=== PATIENT | male | born 1935 | race Caucasian/White ===

== ENCOUNTER → 2023-08-06 14:14 | Outpatient (REF) | payer MEDICARE, BC, SELFPAY | LOC: RAD 14:14 | PROVIDERS: ATTENDING PHYSICIAN Family Medicine | DX: J18.9 Pneumonia, unspecified organism (principal) | CPT/HCPCS: 71046 ==

== ENCOUNTER → 2023-09-13 09:37 | Day surgery (SDC) | payer MEDICARE, BC, SELFPAY ==
--- NOTE | 2023-09-13 10:44 | ITS.CL.CARDI ---
[facility] - Cardioversion
Cardioversion
Procedure Report:
Date of Procedure: September 13 2023
Procedure: Cardioversion
Indication: Symptomatic atrial flutter
Performing Physician: Darnell Villalobos DO, FACC
Technique: The patient was brought to the holding area. Signed informed consent was obtained. A time out was called and performed. The patient was anesthetized by the anesthesia service. Anticoagulation status was reviewed and appropriate. R2 pads
were placed anteriorly and posteriorly. A 200 J synchronized biphasic shock restored normal sinus rhythm without significant bradycardia. There were no complications.
Conclusion: Uncomplicated cardioversion from atrial flutter to sinus rhythm.
Recommendation: Routine post cardioversion care. 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
== END ==
LOC: CATH 09:37
PROVIDERS: ATTENDING PHYSICIAN Nuclear Medicine Nuclear Cardiology; FAMILY PHYSICIAN Family Medicine; OTHER PHYSICIAN Internal Medicine Cardiovascular Disease
DX: I48.92 Unspecified atrial flutter (principal); I10 Essential (primary) hypertension; J44.9 Chronic obstructive pulmonary disease, unspecified; F17.210 Nicotine dependence, cigarettes, uncomplicated; K21.9 Gastro-esophageal reflux disease without esophagitis; Z79.01 Long term (current) use of anticoagulants
CPT/HCPCS: 92960; 93005

== ENCOUNTER → 2023-10-02 15:55 | Outpatient (REF) | payer MEDICARE, BC, SELFPAY | LOC: RCS 15:55 | PROVIDERS: ATTENDING PHYSICIAN Internal Medicine Cardiovascular Disease; FAMILY PHYSICIAN Family Medicine | DX: I48.92 Unspecified atrial flutter (principal) | CPT/HCPCS: 93306 ==

== ENCOUNTER 2023-12-14 01:58 | Inpatient (IN) | payer MEDICARE, BC, SELFPAY ==
[2023-12-13 21:40] VITALS: BP 148/64
[2023-12-13 21:57] LABS: % Basophils 0.3 % (0-2); % Immature Granulocytes 0.3 % (0-0.5); % Lymphocytes 5.6 % (20.5-51.1); % Monocytes 6.2 % (1.7-9.3); % Neutrophils 87.6 % (42.2-75.2); Absolute Lymphocytes 0.7 10^3/uL (1.2-3.4); Absolute Monocytes 0.8 10^3/uL (0.1-0.6); Absolute Neutrophils 11.3 10^3/uL (1.4-6.5); Hematocrit 42.4 % (39.0-52.0); Hemoglobin 15.7 g/dL (13.0-18.0); Mean Corpuscular Hgb 33.3 pg (27.0-31.0); Mean Corpuscular Volume 89.8 fL (80.0-94.0); Mean Platelet Volume 8.9 fL (7.4-10.4); Nucleated Red Blood Cells % 0 % (-); Platelet Count 189 10^3/uL (130-400); Red Blood Cell Count 4.72 10^6/uL (4.70-6.10); Red Cell Dist. Width 12.8 % (11.5-14.5); White Blood Cell Count 12.9 10^3/uL (4.8-10.8)
[2023-12-13 22:20] LABS: ALT (SGPT) 19 U/L (0-50); AST (SGOT) 29 U/L (17-59); Albumin 4.2 g/dl (3.5-5.0); Alkaline Phosphatase 67 U/L (38-126); Blood Urea Nitrogen 10 mg/dl (9-20); Carbon Dioxide 26 mmol/L (22-30); Chloride 98 mmol/L (98-107); Glucose 175 mg/dl (70-99); Potassium 4.1 mmol/L (3.5-5.1); Sodium 132 mmol/L (135-145); Total Bilirubin 0.9 mg/dl (0.2-1.3); Total Protein 6.9 g/dl (6.3-8.2); eGFR > 60.00
[2023-12-13 22:22] LABS: Troponin I < 0.012 ng/ml
[2023-12-13 22:35] VITALS: BP 151/65
[2023-12-13 23:00] VITALS: BP 139/58
--- NOTE | 2023-12-13 23:33 | ED.GENMED ---
History of Present Illness
General
Chief Complaint: Breathing Problem
Source: patient
Exam Limitations: none
Time Seen by Provider: 12/13/23 22:32
Nursing documentation reviewed up to this point in time: agreed with
History of Present Illness
History of Present Illness:
88-year-old male with a past medical history of A-fib, GERD, former smoker who presents to the emergency room for evaluation of shortness of breath, cough, chest pain. Patient reports onset of symptoms Sunday�he reports he started with cough and
some soreness in his chest particularly with coughing. He says that Sunday he tested himself for COVID and was positive�of note his is admitted to the hospital with COVID. He says that cough and minor chest discomfort continued over the next
few days today started with some shortness of breath and came to the emergency room for assessment. He denies any fevers or chills. He denies any URI symptoms such as rhinorrhea, sore throat, congestion. He denies any GI issues. Denies any other
complaints. He reports he did have COVID previously roughly 6 to 8 months ago.
Past History
Past History
ED Past Medical History: GERD and Other (Patient has history of diverticulosis, but has not had any history of diverticulitis, and benign prostatic hypertrophy )
ED Past Surgical History: Appendectomy, Orthopedic (Daniel hip replacements) and Other (cataracts)
Social History
Tobacco: Smoker
Alcohol: Daily (Scotch 2)
Personal:
Living: with family
Employment: Retired
Review of Systems
Review of Systems
All Other Systems: ROS reviewed and negative except as documented in HPI and ROS
Constitutional: Reports fatigue; Denies fever or chills
EENT: Denies sore throat or runny nose
Respiratory: Reports cough and trouble breathing
Cardiac: Reports chest pain; Denies palpitations
ABD/GI: Denies abdominal pain, nausea, vomiting or diarrhea
: Denies flank pain
Musculoskeletal: Denies edema, neck pain or back pain
Neurological: Denies dizzy or headache
Phy Exam
Physical Exam
Physical Exam:
General: Awake, alert, oriented x3; no acute distress
Head: Normocephalic, atraumatic
Eyes: Conjunctiva normal
Throat: Airway intact, handling secretions
Neck: Trachea midline, supple without meningismus
Lungs: Mild tachypnea, borderline pulse ox 91% on room air, occasional coughing but lungs clear to auscultation bilaterally, no wheezing, rales, rhonchi
Heart: Regular rate and rhythm, no murmurs, gallops, or rubs
Abd: Soft, non distended, nontender
Neuro: No gross deficits
Extremities: No edema in extremities, warm and well-perfused
Scores
Heart Failure Risk
Heart Failure Risk Score: Not Applicable
Heart Score for Chest Pain Patients
STEMI patient?: Not applicable
Withdrawal Assessment of Alcohol
Withdrawal Assessment Completed?: Not applicable
Course
Orders/Labs/Results
Orders:
Orders
12/13/23 21:36
Electrocardiogram (*1) Urgent
Reason for Study: Shortness of Breath
EKG- Treatment ONCE
12/13/23 21:46
Chest [CR Chest - 2 Views ] Urgent
Comment:
Reason For Exam: shortness of breath, COVID +
12/13/23 21:51
CBC/With Diff [Complete Blood Count/With Diff] Urgent
CMP [Comprehensive Metabolic Panel] Urgent
Troponin I Urgent
12/13/23 22:[address] Non Medication Order As Directed
Physician Order: ambulatory pulse ox
Above order entered?: Yes
Abnormal Lab Results
12/13/23
21:51
WBC 12.9 H 10^3/uL
(4.8-10.8)
MCH 33.3 H pg
(27.0-31.0)
Absolute Neuts (auto) 11.3 H 10^3/uL
(1.4-6.5)
Absolute Lymphs (auto) 0.7 L 10^3/uL
(1.2-3.4)
Absolute Monos (auto) 0.8 H 10^3/uL
(0.1-0.6)
Neutrophils % 87.6 H %
(42.2-75.2)
Lymphocytes % 5.6 L %
(20.5-51.1)
Sodium 132 L mmol/L
(135-145)
Glucose 175 H mg/dl
(70-99)
12/13/23 21:51
12/13/23 21:51
Vital Signs
Initial and Last Documented VS:
Initial Vital Signs
Temp Pulse Resp BP Pulse Ox
36.7 C 80 20 148/64 92
12/13/23 21:40 12/13/23 21:40 12/13/23 21:40 12/13/23 21:40 12/13/23 21:40
Last Documented Vital Signs
Temp Pulse Resp BP Pulse Ox
36.7 C 80 20 151/65 92
12/13/23 21:40 12/13/23 21:40 12/13/23 21:40 12/13/23 22:35 12/13/23 22:41
MDM/Problems Addressed
Differential Diagnosis Includes:
Pneumonia, pneumothorax, bronchitis, myocarditis; PE, ACS considered less likely clinically
MDM/Problems Addressed:
88-year-old male presents for evaluation of cough, chest discomfort, shortness of breath in the setting of positive COVID test. Vital signs significant for mild tachypnea and borderline pulse ox on room air. Physical exam as above. Will check
labs including CBC and CMP. Will check troponin. Will check chest x-ray. Check an EKG. Monitor closely reassess after the above.
Labs reviewed: CBC shows slight leukocytosis to 12.9. CMP no clinically significant abnormalities. Troponin undetectable. Chest x-ray shows likely viral pneumonia right lung base likely COVID-related. Patient has mild tachypnea with respiratory
rate of 20-22 at rest. He has pulse ox of 91% on room air and with ambulation dropped to 88%. Will plan to treat with steroid and admit for observation of respiratory status given advanced age, progression of symptoms, and pneumonia on chest x-ray
with abnormal vital signs. Case discussed with hospitalist.
*Radiology
Radiology exam reviewed: preliminary read by ED provider and radiology read reviewed
*Pulse Oximetry
Patient hypoxic: no
*EKG
Interpreted by ED Provider?: Yes
Heart Rate: 76
Rate: normal
Rhythm: sinus
Cranston: left axis deviation
Interval: normal interval
QRS Pattern: normal QRS
Ischemia: no ischemia
*Critical Care Note
Total Time (30-74mins, 75-104mins- exclusive of procedures): Not Applicable
Data Reviewed
Source: patient and records
Patient Management
Discussion with other providers: Hospitalist (Discussed with hospitalist)
Escalation/DeEscalation of care consider admission/obs:
Admission indicated
ED Attending Note
-
Portions of this chart may have been created with voice recognition software.� Occasional wrong word or��sound alike� substitutions may have occurred due to the inherent limitations of voice recognition software.
Discharge Plan
Departure
Patient Disposition: Admit
Date of Disposition: 12/13/23
Time of Disposition: 23:42
Admit to doctor: Dandy
Presentation/result/management discussed w/ accepting MD/DO: Hospitalist
Discharge Problem:
Pneumonia due to COVID-19 virus
Prescriptions:
No Action
rabeprazole [AcipHex] 20 MG tablet,delayed release (DR/EC)
40 mg PO DAILY
cyanocobalamin (vitamin B-12) 1,000 MCG tablet
1,000 mcg PO DAILY
Florastor 50 mg Capsule
50 mg PO DAILY
varenicline [Chantix] 1 mg Tablet
1 mg PO BID
cholecalciferol (vitamin D3) [Vitamin D3] 50 mcg (2,000 unit) Capsule
50 mcg PO DAILY
Eliquis 5 mg Tablet
5 mg PO BID
Referrals:
Ron Chairez MD [Family Provider] -
Interventions
Interventions:
*Risk Screen - Suicide Last Done: 12/13/23 21:40
*General Assessment Last Done: 12/13/23 21:40
*Neglect/Abuse Screening Last Done: 12/13/23 22:41
*ED COVID-19 Vaccine History Last Done: 12/13/23 22:41
ED- Cardiac Assessment Last Done: 12/13/23 22:41
ED- Pulmonary Assessment Last Done: 12/13/23 22:41
Discharge Date and Time
Print Language: MOSOTHO
[2023-12-14] VITALS (8 sets, daily range): BP systolic 105–144; BP diastolic 48–70; PULSE 65–70; O2SAT 93; BMI 27.9
[2023-12-14] MEDS: DECADRON 10 MG IV (00:39)
--- NOTE | 2023-12-14 01:02 | HPS.HSE ---
Family Physician
-
Family Physician: Ron Chairez
Chief Complaint
-
Cough, Dizziness
History of Present Illness
Patient is an 88y M with PMH significant for A-Fib / Flutter and GERD who presents to ED complaining of cough, weakness and lightheadedness x several days. Patient states that his symptoms first appeared on Sunday evening. Cough has been
productive of yellow mucus. He has had mild shortness of breath and general fatigue. He tested for COVID at home on Sunday and was positive. His was also ill with similar symptoms, tested positive for COVID and has since been hospitalized
for her symptoms.
Patient states that he was feeling 'OK' until today when he noted that he was lightheaded / unsteady on his feet at home. He did not fall or suffer any injury. He had no syncope.
Patient presented to the ED for further evaluation and treatment.
Medical History
Past Medical History
Past Medical History: Reports Other
Additional Past Medical History:
GERD / Hurtado's Esophagus
Atrial Fibrillation / Flutter (s/p DCCV August 2023)
COPD
BPH
Past Surgical History: Reports Other
Additional Past Surgical History:
Bilateral HILTON
Left HILTON Revision
Cataracts
Skin Cancer Excisions
TURP
Hemorrhoid Surgery
Social History
Tobacco: Smoker (Current every day smoker. 'Quit' on Sunday of this week.)
Alcohol: Daily (2 drinks daily.)
Drug: None
Personal:
Family History
Family History: Not pertinent
Allergies / Home Medications
Allergies reflects when Allergies were last updated in [facility].
Home Medications with original date entered in [facility]
Allergy/Medication List:
Allergies
Allergy/AdvReac Type Severity Reaction Status Date / Time
No Known Allergies Allergy Verified 12/13/23 21:44
Home Medications
rabeprazole 20 mg tablet,delayed release (AcipHex) 40 mg PO DAILY 11/13/09
apixaban 5 mg tablet (Eliquis) 5 mg PO BID 09/13/23
Review of Systems
-
History Source: Patient
A 12 point ROS was completed and negative except as noted: Yes
Constitutional: Reports Fever, Fatigue and Chills
EENT: Denies Sore Throat
Respiratory: Reports Cough and Trouble Breathing; Denies Hemoptysis
Cardiac: Denies Chest Pain, Diaphoresis or Palpitations
Abdomen/GI: Denies Abdominal Pain, Nausea, Vomiting or Diarrhea
: Denies Dysuria, Frequency or Flank Pain
Musculoskeletal: Reports Muscle Pain; Denies Joint Pain or Edema
Neurological: Reports Dizzy and Headache
Psych: Denies Depression or Anxiety
Physical Exam
Vital Signs
Vital Signs
Temp Pulse Resp BP Pulse Ox
98.0 F 80 20 151/65 92
12/13/23 21:40 12/13/23 21:40 12/13/23 21:40 12/13/23 22:35 12/13/23 22:41
Physical Exam
General: Other (88y M resting comfortably at present.)
HEENT: Moist mucous membranes and PERRLA
Respiratory: Other (Few scattered squeaks / wheezes - clears with cough. Faint rales at R base.)
Cardiac: S1/S2 and Regular Rhythm; No Murmur
GI: Soft, Non Tender, Non Distended and Normal Bowel Sounds
Musculoskeletal: No Clubbing, No Cyanosis and No Edema
Neuro: AO x 3
Laboratory Results
-
12/13/23 21:51
12/13/23 21:51
Laboratory Results
Total Bilirubin 0.9 mg/dl (0.2-1.3) 12/13/23 21:51
AST 29 U/L (17-59) 12/13/23 21:51
ALT 19 U/L (0-50) 12/13/23 21:51
Alkaline Phosphatase 67 U/L (38-126) 12/13/23 21:51
Troponin I < 0.012 ng/ml 12/13/23 21:51
Impression/Plan
-
A/P: Patient is an 88y M with PMH significant for A-Fib / Flutter and GERD who presents to ED complaining of cough, fever and weakness.
COVID-19 Infection
Acute Hypoxemic Respiratory Insufficiency secondary to the above
- Admit for further evaluation and treatment.
- Dexamethasone daily.
- Supportive care including supplemental O2, albuterol MDI, etc.
- Patient has been vaccinated x 3 total - most recent was some time ago.
- Follow proper precautions.
- Follow for clinical improvement / reduction in O2 needs.
Atrial Fibrillation / Flutter
- Stable. s/p DCCV in August and no issues since that time per patient.
- Continue Eliquis.
GERD
- Stable. Continue daily PPI.
DVT Prophylaxis: On Eliquis.
Code Status: Full
[2023-12-14 07:42] LABS: Hematocrit 44.8 % (39.0-52.0); Mean Corp Hgb Conc. 35.7 g/dL (33.0-37.0); Mean Corpuscular Hgb 33.5 pg (27.0-31.0); Mean Corpuscular Volume 93.9 fL (80.0-94.0); Mean Platelet Volume 9.1 fL (7.4-10.4); Platelet Count 194 10^3/uL (130-400); Red Blood Cell Count 4.77 10^6/uL (4.70-6.10); Red Cell Dist. Width 12.7 % (11.5-14.5); White Blood Cell Count 14.4 10^3/uL (4.8-10.8)
[2023-12-14 08:03] LABS: Blood Urea Nitrogen 10 mg/dl (9-20); Calcium 9.2 mg/dl (8.4-10.2); Carbon Dioxide 28 mmol/L (22-30); Chloride 99 mmol/L (98-107); Estimated Creatinine Clearance 65 ml/min; Glucose 174 mg/dl (70-99); Potassium 4.8 mmol/L (3.5-5.1); Sodium 135 mmol/L (135-145); eGFR > 60.00
[2023-12-14] MEDS: ELIQUIS 5 MG PO (09:44)
[2023-12-14] MEDS: DECADRON 6 MG PO (09:44)
[2023-12-14] MEDS: PROTONIX 40 MG PO (09:44)
[2023-12-14] MEDS: NICODERM TRANSDERMAL 21 MG TRANSDERM (09:45)
--- NOTE | 2023-12-14 10:59 | PTOTSP ---
Patient demonstrates functional independence with bed mobility, transfers and ambulation without use of AD. At this time, does not demonstrate need for further skilled therapy and will be discharged from caseload. If needs change, please re-consult.
--- NOTE | 2023-12-14 16:32 | W.PN.UPDATE ---
Update Note
Progress Note Update
Nonbillable note
Patient came in the night for COVID-19 viral infection and related to hypoxemia
Patient requesting to be discharged, if clears home oxygen evaluation can be discharged home.
Physical therapy evaluated and patient stable to be home discharge
Prescription for prednisone has been sent to pharmacy.
--- NOTE | 2023-12-14 17:03 | CM ---
Patient has been medically cleared for discharge to home with no additional skilled services. Patient has arranged for transport home.
--- NOTE | 2023-12-15 17:20 | W.DCSUMMARY ---
Discharge Summary
Discharge Data
Date of Admission: 12/14/23
Date of Discharge: 12/14/23
-
Pending Results: No
Hospital Course
Discharging Physician : Dr Kennedy Calero
Disposition : Home
Primary care physician : Dr Ron Caldwell
Principal Discharge diagnosis :
COVID-19 viral infection
Acute hypoxic respite insufficiency
Generalized weakness
Chronic Discharge diagnosis :
Paroxysmal atrial fibrillation on Eliquis
Chronic obstructive pulmonary disease
Benign prostatic hyperplasia
Gastroesophageal reflux disease
Hospital Course :
Patient is 88-year-old male with above-mentioned past medical history came to ER with generalized weakness and productive cough. Patient have some associated shortness of breath. Patient was tested positive for COVID 3 days back at home. In ER
evaluation patient was noted to be borderline hypoxic and was admitted for overnight monitoring. Patient was started on IV Decadron. Chest x-ray did not show any significant parenchymal changes and there was low concern of superimposed bacterial
pneumonia. Patient was evaluated by physical therapy and was appropriate for home level care. Patient was able to be weaned off of oxygen. Patient was discharged home with finishing course of steroid for few days.
Important imaging findings :
None
Procedure findings :
None
Discharge Plan
-
Patient Disposition: Home (Routine Discharge)
Discharge Diagnosis/Procedures: COVID 19 viral infection, hypoxic resp insufficiency
Condition: Fair
Diet: Regular
Activity: As tolerated
Driving Restrictions: As prior to admission
Bathing Restrictions: OK to Shower
Referrals:
Ron Chairez MD [Family Provider] - in one week
Prescriptions:
New
dexamethasone 6 mg tablet
6 mg PO DAILY Qty: 5 0RF
dextromethorphan-guaifenesin [Robitussin Cough-Chest Uri DM] 5-100 mg/5 mL liquid
10 ml PO Q8H PRN (Reason: Cough) Qty: 500 0RF
acetaminophen [Tylenol Extra Strength] 500 mg tablet
500 mg PO QID PRN (Reason: Fever/pain) Qty: 14 0RF
Continued
rabeprazole [AcipHex] 20 MG tablet,delayed release (DR/EC)
40 mg PO DAILY
Eliquis 5 mg Tablet
5 mg PO BID
Discharge Orders:
Discharge Patient (As Directed); Ordered 12/14/23
Ordered By: Kennedy Calero
Discharge Date and Time
Discharge Date/Time: 12/14/23 17:39
Print Language: SYRIAC
== END 2023-12-14 17:39 | disposition home or self-care (01) | DRG 179 ==
LOC: 2 NORTH 01:58
PROVIDERS: Emergency Medicine; ADMITTING PHYSICIAN Hospitalist; ATTENDING PHYSICIAN Hospitalist; EMERGENCY PHYSICIAN Emergency Medicine; FAMILY PHYSICIAN Family Medicine
DX: U07.1 COVID-19 (principal); I48.0 Paroxysmal atrial fibrillation; K21.9 Gastro-esophageal reflux disease without esophagitis; F17.200 Nicotine dependence, unspecified, uncomplicated; N40.0 Benign prostatic hyperplasia without lower urinary tract symptoms; J44.9 Chronic obstructive pulmonary disease, unspecified; R06.89 Other abnormalities of breathing; R09.02 Hypoxemia; Z79.01 Long term (current) use of anticoagulants
CPT/HCPCS: 71046; 80048; 80053; 84484; 85025; 85027; 93005; 96374; 97162; 97165; 99285; 99406

== ENCOUNTER → 2024-04-16 13:45 | Outpatient (REF) | payer MEDICARE, BC, SELFPAY ==
[2024-04-16 14:19] LABS: % Basophils 0.6 % (0-2); % Eosinophils 0.4 % (0-6); % Immature Granulocytes 0.4 % (0-0.5); % Lymphocytes 31.1 % (20.5-51.1); % Monocytes 8.4 % (1.7-9.3); % Neutrophils 59.1 % (42.2-75.2); Absolute Lymphocytes 2.1 10^3/uL (1.2-3.4); Absolute Monocytes 0.6 10^3/uL (0.1-0.6); Hemoglobin 16.9 g/dL (13.0-18.0); Mean Corp Hgb Conc. 33.1 g/dL (33.0-37.0); Mean Corpuscular Hgb 32.4 pg (27.0-31.0); Mean Corpuscular Volume 97.7 fL (80.0-94.0); Mean Platelet Volume 9.2 fL (7.4-10.4); Nucleated Red Blood Cells % 0 % (-); Platelet Count 205 10^3/uL (130-400); Red Blood Cell Count 5.22 10^6/uL (4.70-6.10); Red Cell Dist. Width 12.9 % (11.5-14.5); White Blood Cell Count 6.8 10^3/uL (4.8-10.8)
[2024-04-16 15:45] LABS: ALT (SGPT) 23 U/L (0-50); AST (SGOT) 35 U/L (17-59); Albumin 4.7 g/dl (3.5-5.0); Alkaline Phosphatase 70 U/L (38-126); Blood Urea Nitrogen 18 mg/dl (9-20); Calcium 9.5 mg/dl (8.4-10.2); Carbon Dioxide 32 mmol/L (22-30); Chloride 99 mmol/L (98-107); Glucose 93 mg/dl (70-99); Potassium 4.6 mmol/L (3.5-5.1); Sodium 140 mmol/L (135-145); Total Bilirubin 0.5 mg/dl (0.2-1.3); Total Protein 7.7 g/dl (6.3-8.2); eGFR > 60.00
[2024-04-16 16:03] LABS: Vitamin D, 25-OH*** 36.4 ng/mL (30-80)
== END ==
LOC: REG 13:45
PROVIDERS: ATTENDING PHYSICIAN Internal Medicine Rheumatology; FAMILY PHYSICIAN Family Medicine
DX: E55.9 Vitamin D deficiency, unspecified (principal); M25.50 Pain in unspecified joint; Z51.81 Encounter for therapeutic drug level monitoring
CPT/HCPCS: 36415; 80053; 82306; 85025

== ENCOUNTER 2024-08-04 03:03 | Inpatient (IN) | payer MEDICARE, BC, SELFPAY ==
[2024-08-04] VITALS (18 sets, daily range): BP systolic 97–159; BP diastolic 37–88; BMI 27.7; BMI 27.1
--- NOTE | 2024-08-04 01:26 | ED.GENMED ---
History of Present Illness
General
Chief Complaint: Breathing Problem
Source: patient and ambulance crew
Exam Limitations: none
Time Seen by Provider: 08/04/24 01:25
Nursing documentation reviewed up to this point in time: agreed with
History of Present Illness
History of Present Illness:
89-year-old male from home with history of A-fib on Eliquis, GERD, BPH presents with shortness of breath and fever. Has had a cough for 2 to 3 weeks. Has been weak and having difficulty ambulating. Pulse ox 87% RA for EMS, placed on 6L NC O2,
pulse ox 95%. On arrival RA pulse ox 87% placed back on O2.
Pt is confused
Son arrives; states pt former smoker and continues to sneak cigarettes occasionally
States this confusion is new
Past History
Past History
ED Past Medical History: Arrthythmia (afib), GERD and Other (Patient has history of diverticulosis, but has not had any history of diverticulitis, and benign prostatic hypertrophy )
ED Past Surgical History: Appendectomy, Orthopedic (Daniel hip replacements) and Other (cataracts)
Social History
Tobacco: Smoker
Alcohol: Daily (Scotch 2)
Personal:
Living: with family
Employment: Retired
Review of Systems
Review of Systems
Allergies reviewed?: Yes
All Other Systems: ROS reviewed and negative except as documented in HPI and ROS
Constitutional: Reports fever
Respiratory: Reports cough
Cardiac: Denies chest pain
ABD/GI: Denies abdominal pain, vomiting or diarrhea
Musculoskeletal: Denies edema
Skin: Reports no symptoms
Neurological: Reports other (confusion); Denies weakness
Phy Exam
Physical Exam
Physical Exam:
GENERAL: Alert, confused
CONSTITUTIONAL: Afebrile.
EYES: clear, conjunctivae normal
ENMT: moist mucus membranes, Pharynx nl
RESPIRATORY: Regular respirations, nonlabored, lungs with rhonchi throughout, coarse junky cough
CARDIOVASCULAR: Regular rate and rhythm, no murmurs, no rubs.
GI: Soft, nontender, normal BS
MUSCULOSKELETAL: Moves with ease. Well perfused. No edema
SKIN: Warm, dry, pink
PSYCH: Normal mood and affect. Well kept, interactive and appropriate
NEUROLOGIC: Awake, alert and confused, states [facility] as the year, repeats ,... when asked the month. speech clear, finger to nose intact. Strength equal throughtout. No focal neurological deficits
Scores
Heart Failure Risk
Heart Failure Risk Score: Not Applicable
Course
Orders/Labs/Results
Orders:
Orders
08/04/24 01:04
EKG [Electrocardiogram (*1)] Urgent
Reason for Study: Shortness of Breath
EKG- Treatment ONCE
08/04/24 01:05
Cardiac Monitoring- Treatment ONCE
IV Insert/Care/Rem.- Treatment PRN
Straight cath- Treatment ONCE
O2 Therapy [RESP] Urgent
Titrate/Wean O2 to maintain O2 sat greater than (%): 93
Special Instructions: TO MAINTAIN CONTINUOUS O2 SATS > OR = 93%
Pulse Ox/cont/shift [RESP] Urgent
Quantity: 1
Special Instructions: CONTINUOUS
08/04/24 01:07
COVID-19 Antigen Urgent
Source: Nasal Swab
Complete Blood Count/With Diff Urgent
Comprehensive Metabolic Panel Urgent
Lactic Acid Q4H
Comment: ON ICE, CANCEL 2ND ORDER IF FIRST LACTIC ACID LEVEL <2
Influenza A+B Rapid Molecular Urgent
MARIBETH Source: Nasal Swab
Specimen Description:
08/04/24 01:13
Blood Culture Q20M
MARIBETH Source: Blood/Venous
Specimen Description:
Comment: Urgent from separate sites. If patient screens positive for possible sepsis
08/04/24 01:22
Blood Culture Q20M
MARIBETH Source: Blood/Venous
Specimen Description:
Comment: Urgent from separate sites. If patient screens positive for possible sepsis
08/04/24 01:30
CR Chest Portable - 1 View Urgent
Comment:
Reason For Exam: SOB, fever, flu+, junky cough
Reason Study Needs to be Portable: Patient Unstable
08/04/24 01:33
Ipratropium/Albuterol Sulfate [Duoneb] 3 ml INH R NOW STA
08/04/24 01:35
Acetaminophen [Tylenol/Feverall] 650 mg RECTAL NOW STA
08/04/24 01:37
Urinalysis Reflex To Culture Urgent
Date Specimen was Collected: 08/04/24
Time Specimen was Collected: 01:05
Urine Microscopic Reflex Cult Urgent
08/04/24 01:40
Acetaminophen [Tylenol] 1,000 mg .ROUTE .STK-MED ONE
08/04/24 01:41
Acetaminophen [Tylenol] 1,000 mg PO NOW STA
08/04/24 01:48
CT Head W/o Iv Contrast Urgent
Comment:
Reason For Exam: expressive aphasia, confusion, Flu +
08/04/24 01:54
Oseltamivir Phosphate [Tamiflu] 75 mg PO NOW STA
08/04/24 02:41
MRSA Screen Routine
MARIBETH Source: Nose
Specimen Description:
Sputum Culture [Respiratory Culture/Gram Stain] Urgent
MARIBETH Source: Sputum
Specimen Description:
08/04/24 05:15
Lactic Acid Q4H
Comment: ON ICE, CANCEL 2ND ORDER IF FIRST LACTIC ACID LEVEL <2
Abnormal Lab Results
08/04/24 08/04/24
01:07 01:37
RBC 4.41 L 10^6/uL
(4.70-6.10)
MCV 95.2 H fL
(80.0-94.0)
MCH 32.9 H pg
(27.0-31.0)
Abs Immat Gran (auto) 0.1 H 10^3/uL
(0-0.05)
Absolute Neuts (auto) 8.5 H 10^3/uL
(1.4-6.5)
Absolute Lymphs (auto) 0.8 L 10^3/uL
(1.2-3.4)
Absolute Monos (auto) 1.0 H 10^3/uL
(0.1-0.6)
Immature Gran % 0.6 H %
(0-0.5)
Neutrophils % 81.9 H %
(42.2-75.2)
Lymphocytes % 7.7 L %
(20.5-51.1)
Sodium 132 L mmol/L
(135-145)
Chloride 93 L mmol/L
(98-107)
Glucose 114 H mg/dl
(70-99)
Lactic Acid 2.5 H mmol/L
(0.7-2.0)
Urine Ketones 1+ A
(Negative)
Ur Occult Blood Reflex 4+ A
(Negative)
Urine RBC >100 A /HPF
(0-2)
Urine Bacteria (Reflex) Few A
(Negative)
Urine Albumin (Reflex) 2+ A
(Neg - Trace)
08/04/24 01:07
08/04/24 01:07
Vital Signs
Initial and Last Documented VS:
Initial Vital Signs
Temp Pulse Ox
102.9 F H 87
08/04/24 01:06 08/04/24 01:06
Last Documented Vital Signs
Temp Pulse Resp BP Pulse Ox
102.9 F H 87 30 103/51 99
08/04/24 01:06 08/04/24 02:00 08/04/24 02:00 08/04/24 02:00 08/04/24 02:00
MDM/Problems Addressed
Differential Diagnosis Includes:
PNA, Flu, Covid, SIRS, Sepsis, UTI
MDM/Problems Addressed:
89-year-old male from home with history of A-fib on Eliquis, GERD, BPH presents with shortness of breath and fever. Has had a cough for 2 to 3 weeks. Has been weak and having difficulty ambulating. Pulse ox 87% RA for EMS, placed on 6L NC O2,
pulse ox 95%. On arrival RA pulse ox 87% placed back on O2.
Temp 102.9 Rectally, tachypneic, hypoxemic
EKG sinus rhythm with PACs
CBC with no clinically significant abnormality
CMP with no clinically significant abnormality
CXR reviewed with Dr. Lewis, no local consolidations indicating pneumonia
Plan: Admit, Flu, acute hypoxemic respiratory failure,
*EKG
EKG Intrepretation Date: 08/04/24
Interpretation: abnormal
Heart Rate: 87
Rate: normal
Rhythm: sinus
Barnes: left axis deviation
Interval: normal interval
QRS Pattern: normal QRS
Ischemia: no ischemia
*Critical Care Note
Total Time (30-74mins, 75-104mins- exclusive of procedures): Not Applicable
ED Attending Note
-
Portions of this chart may have been created with voice recognition software.� Occasional wrong word or��sound alike� substitutions may have occurred due to the inherent limitations of voice recognition software.
Discharge Plan
Departure
Patient Disposition: Admit
Date of Disposition: 08/04/24
Time of Disposition: 01:58
Presentation/result/management discussed w/ accepting MD/DO: Hospitalist
Condition: Serious
Covid-19: Negative COVID-19
Discharge Problem:
Influenza A, Acute hypoxic respiratory failure
Prescriptions:
No Action
rabeprazole [AcipHex] 20 MG tablet,delayed release (DR/EC)
40 mg PO DAILY
Eliquis 5 mg Tablet
5 mg PO BID
Interventions
Interventions:
*Risk Screen - Suicide Last Done: 08/04/24 01:08
*General Assessment Last Done: 08/04/24 01:08
*Neglect/Abuse Screening Last Done: 08/04/24 01:08
*ED- Fall Risk Assessment Last Done: 08/04/24 01:08
*ED COVID-19 Vaccine History Last Done: 08/04/24 01:08
ED- Cardiac Assessment Last Done: 08/04/24 01:35
ED- Pulmonary Assessment Last Done: 08/04/24 01:35
Discharge Date and Time
Print Language: [place] CITIZ[place]
[2024-08-04 01:27] LABS: COVID-19 Antigen Negative (Negative)
[2024-08-04 01:29] LABS: Lactic Acid 2.5 mmol/L (0.7-2.0)
[2024-08-04 01:31] LABS: % Basophils 0.3 % (0-2); % Eosinophils 0.2 % (0-6); % Immature Granulocytes 0.6 % (0-0.5); % Lymphocytes 7.7 % (20.5-51.1); % Monocytes 9.3 % (1.7-9.3); % Neutrophils 81.9 % (42.2-75.2); ALT (SGPT) 25 U/L (0-50); AST (SGOT) 34 U/L (17-59); Absolute Immature Granulocytes 0.1 10^3/uL (0-0.05); Absolute Lymphocytes 0.8 10^3/uL (1.2-3.4); Absolute Neutrophils 8.5 10^3/uL (1.4-6.5); Albumin 4.1 g/dl (3.5-5.0); Alkaline Phosphatase 69 U/L (38-126); Blood Urea Nitrogen 14 mg/dl (9-20); Calcium 8.5 mg/dl (8.4-10.2); Carbon Dioxide 28 mmol/L (22-30); Chloride 93 mmol/L (98-107); Estimated Creatinine Clearance 66 ml/min; Glucose 114 mg/dl (70-99); Hemoglobin 14.5 g/dL (13.0-18.0); Mean Corp Hgb Conc. 34.5 g/dL (33.0-37.0); Mean Corpuscular Hgb 32.9 pg (27.0-31.0); Mean Corpuscular Volume 95.2 fL (80.0-94.0); Mean Platelet Volume 8.9 fL (7.4-10.4); Nucleated Red Blood Cells % 0 % (-); Platelet Count 179 10^3/uL (130-400); Potassium 4.5 mmol/L (3.5-5.1); Red Blood Cell Count 4.41 10^6/uL (4.70-6.10); Red Cell Dist. Width 13.2 % (11.5-14.5); Sodium 132 mmol/L (135-145); Total Bilirubin 0.6 mg/dl (0.2-1.3); Total Protein 6.6 g/dl (6.3-8.2); White Blood Cell Count 10.3 10^3/uL (4.8-10.8); eGFR > 60.00
[2024-08-04] MEDS: TYLENOL 1000 MG PO (01:42)
[2024-08-04] MEDS: DUONEB 3 ML INH ×5 (01:42→19:22)
[2024-08-04 01:51] LABS: Urine Albumin 2+ (Neg - Trace); Urine Bilirubin Negative (Negative); Urine Character Slightly Cloudy (Clear); Urine Color Yellow; Urine Glucose Negative (Negative); Urine Ketone 1+ (Negative); Urine Leukocyte Negative (Negative); Urine Nitrite Negative (Negative); Urine Occult Blood 4+ (Negative); Urine Specific Gravity 1.025 (<1.030); Urine Urobilinogen Negative (Neg - 1+)
[2024-08-04] MEDS: TAMIFLU 75 MG PO ×3 (02:01→20:29)
[2024-08-04 02:08] LABS: Urine Red Blood Cell >100 /HPF (0-2)
[2024-08-04 02:09] LABS: Urine Bacteria Few (Negative); Urine Mucus Few
--- NOTE | 2024-08-04 02:23 | EDRN ---
Pt incontinent of urine upon arrival to ED. Pt's pants and underwear removed and placed in separate clothing bag. Blood noted on front of pt's underwear. When pt was catheterized for clean catch urine specimen, initial return was blood tinged
then became clear. Unable to complete med rec because pt and family do not know dosages/names medications.
--- NOTE | 2024-08-04 02:40 | HPS.HSE ---
Family Physician
-
Family Physician: Ron Chairez
Chief Complaint
-
Cough and shortness of breath
History of Present Illness
This is 89-year-old male with past medical history of for GERD, BPH, atrial fibrillation on anticoagulation, tobacco dependence and COPD who presents to the emergency department with cough and shortness of breath.
Patient able to determine that he is been having symptoms for about 4 days. Reports productive cough. Shortness of breath and dyspnea on exertion. Started having fevers today. He does not have any known sick contact. He denies any recent
travel. He lives with his spouse and a home health aide who have not shown any symptoms. Reports chronic loose bowel movements in the mornings but denies any recent worsening diarrhea nausea or vomiting.
Appeared to have been more confused with some expressive aphasia today.
In the emergency department he was hypoxic requiring 3 L. Blood pressure was 103/50 with a pulse of 87 satting 99% on 3 L. Temperature was 103. His influenza test was positive. COVID test was negative. Chest x-ray showed no acute infiltrates.
CBC was unremarkable. Electrolytes BUN/creatinine were all within normal range. Lactic acid was elevated at 2.5. U/A with microscopic hematuria.
Medical History
Past Medical History
Past Medical History: Reports Other
Additional Past Medical History:
GERD / Hurtado's Esophagus
At[facility] / [facility])
COPD
BPH
Past Surgical History: Reports Other
Additional Past Surgical History:
Bilateral HILTON
Left HILTON Revision
Cataracts
Skin Cancer Excisions
TURP
Hemorrhoid Surgery
Social History
Tobacco: Smoker (Current every day smoker. 'Quit' on Sunday of this week.)
Alcohol: Daily (2 drinks daily.)
Drug: None
Personal:
Living: With Family
Employment: Retired
Family History
Family History: Not pertinent
Allergies / Home Medications
Allergies reflects when Allergies were last updated in [facility].
Home Medications with original date entered in [facility]
Allergy/Medication List:
Allergies
Allergy/AdvReac Type Severity Reaction Status Date / Time
No Known Allergies Allergy Verified 08/04/24 01:58
Home Medications
Anoro Ellipta 62.5-25 MCG/ACT 1 puff Inhalation Once a day Active
Vitamin B 12 500 MCG 1 tablet Orally Once a Day Active
Albuterol Sulfate HFA 108 (90 Base) MCG/ACT 2 puff as needed Inhalation Every 6 Hours for 30 days PRN Dec, Active
Eliquis 5 MG 1 tablet Orally Twice a day for 90 days Active
Pantoprazole Sodium 40 MG 1 tablet Orally Once a day Active
Aciphex 20 MG 1 tablet Orally Once a day for 90 days September, Active
Review of Systems
-
History Source: Patient and Family
Constitutional: Reports Fever
EENT: Reports No Symptoms
Respiratory: Reports Cough and Trouble Breathing
Cardiac: Reports No Symptoms
Abdomen/GI: Reports No Symptoms
: Reports No Symptoms
Musculoskeletal: Reports No Symptoms
Skin: Reports No Symptoms
Neurological: Reports No Symptoms
Endocrine: Reports No Symptoms
Hematologic/Lymphatic: Reports No Symptoms
Psych: Reports No Symptoms
Physical Exam
Vital Signs
Vital Signs
Temp Pulse Resp BP Pulse Ox
102.9 F H 87 30 103/51 99
08/04/24 01:06 08/04/24 02:00 08/04/24 02:00 08/04/24 02:00 08/04/24 02:00
Physical Exam
General: Well Developed, Well Nourished, Respiratory Distress, Fever and Chills
HEENT: NormoCephalic, Anicteric, Moist mucous membranes, Atraumatic, PERRLA and Oxygen
Respiratory: Wheezes and Rhonchi
Cardiac: S1/S2 and Regular Rhythm
Breast: Deferred by me
GI: Soft, Non Tender, Non Distended and Normal Bowel Sounds
Rectal: Deferred by Provider
Genito-urinary: Deferred by me
Musculoskeletal: No Clubbing, No Cyanosis and No Edema
Skin: Warm
Neuro: AO x 3 and Nonfocal/grossly intact
Hematologic/Lymphatic: No Lymphadenopathy
Psych: Calm
Laboratory Results
-
08/04/24 01:07
08/04/24 01:07
Laboratory Results
Lactic Acid 2.5 mmol/L (0.7-2.0) H 08/04/24 01:07
Total Bilirubin 0.6 mg/dl (0.2-1.3) 08/04/24 01:07
AST 34 U/L (17-59) 08/04/24 01:07
ALT 25 U/L (0-50) 08/04/24 01:07
Alkaline Phosphatase 69 U/L (38-126) 08/04/24 01:07
Data Reviewed
-
Diagnostic Radiology: Image Personally Visualized and interpreted
Lab Data: Labs Reviewed by me
Old Records: Reviewed
Impression/Plan
-
IMPRESSION:
89 y.o smoker, COPD here with fever, productive cough and SOB. Hypoxic. Xray w/o focal infiltrates. No chest pain. Found to have influenza A.
PLAN:
Influenza A - Fever, hypoxia, metabolic encephalopathy.
- admit to telemetry
- started on tamiflu
- blood cultures sent
- check procalcitonin
- manage COPD with nebs and short oral steroid course for now
- IV fluids x 1
Hematuria - On eliquis, has bph not on meds. Found incontinent with blood stained underwear and u/a with microscopic hematuria and uroepithelial cells.
- hematuria on eliquis after instrumentation. Repeat in 1-2 weeks, then imaging and referal to urology if persistent.
AFIB -
- continue eliquis for now
- patient not on any rate control.
- monitor on telemetry
DVT PPX - on apixaban
Code status - Full Code
[2024-08-04] MEDS: NSS 1000 IV (03:27)
[2024-08-04] MEDS: DECADRON 6 MG IV (03:27)
--- NOTE | 2024-08-04 03:37 | EDRN ---
Son noted prior to pt going to CT that 'he is back to normal.' Pt is now alert and oriented x 4 'I don't remember coming in here' pt told this RN. Explained plan of care to pt. Pt denies pain.
[2024-08-04 06:25] LABS: Lactic Acid 2.3 mmol/L (0.7-2.0)
[2024-08-04 06:26] LABS: Blood Urea Nitrogen 15 mg/dl (9-20); Calcium 8.2 mg/dl (8.4-10.2); Carbon Dioxide 28 mmol/L (22-30); Chloride 94 mmol/L (98-107); Estimated Creatinine Clearance 74 ml/min; Glucose 122 mg/dl (70-99); Potassium 4.5 mmol/L (3.5-5.1); Sodium 132 mmol/L (135-145); eGFR > 60.00
[2024-08-04 06:31] LABS: Procalcitonin 1.13 ng/ml (0.0-0.25)
[2024-08-04] MEDS: ELIQUIS 5 MG PO ×2 (07:13→20:29)
[2024-08-04] MEDS: MUCINEX 600 MG PO ×2 (07:13→20:29)
[2024-08-04] MEDS: DELTASONE 50 MG PO (07:13)
--- NOTE | 2024-08-04 08:53 | W.PN.UPDATE ---
Update Note
Progress Note Update
Nonbillable note
Influenza A viral pneumonia, acute hypoxic respiratory insufficiency -patient has been started on Tamiflu. Currently on 2 L oxygen through nasal cannula. Spiking high-grade fever of 101.4 Fahrenheit in ER. Procal is elevated 1.13.
Lactic acidosis -minimal 2.3, blood pressure normal. Monitor.
Toxic metabolic encephalopathy -reported some confusion, likely due to viral infection. Monitor for any focal neurological deficit. CT head negative in ER.
Acute Hyponatremia -baseline sodium normal. Currently sodium of 132. Not on any meds to explain hyponatremia. further testing if worsens.
--- NOTE | 2024-08-04 20:15 | PTCARENOTE ---
Pt transferred from ED. Pt ambulated into room with assistance. Pt flu positive. Pt oriented to unti, call echavarria within reach, bed in lowest position, bed alarm applied. Will continue with current plan.
--- NOTE | 2024-08-04 20:52 | VATNOTE ---
pt refusing restart of EMS line in left ac. wishes honored.
[2024-08-04] MEDS: TYLENOL 650 MG PO (21:46)
[2024-08-04] MEDS: ROBITUSSIN 200 MG PO (22:00)
[2024-08-05] VITALS (7 sets, daily range): BP systolic 119–141; BP diastolic 52–71; BMI 27.1
[2024-08-05 07:35] LABS: Hematocrit 42.3 % (39.0-52.0); Hemoglobin 14.6 g/dL (13.0-18.0); Mean Corp Hgb Conc. 34.5 g/dL (33.0-37.0); Mean Corpuscular Hgb 32.3 pg (27.0-31.0); Mean Corpuscular Volume 93.6 fL (80.0-94.0); Platelet Count 170 10^3/uL (130-400); Red Blood Cell Count 4.52 10^6/uL (4.70-6.10); Red Cell Dist. Width 13.1 % (11.5-14.5); White Blood Cell Count 10.1 10^3/uL (4.8-10.8)
[2024-08-05 07:57] LABS: Blood Urea Nitrogen 19 mg/dl (9-20); Calcium 8.5 mg/dl (8.4-10.2); Carbon Dioxide 29 mmol/L (22-30); Chloride 96 mmol/L (98-107); Estimated Creatinine Clearance 74 ml/min; Glucose 105 mg/dl (70-99); Potassium 4.3 mmol/L (3.5-5.1); Sodium 132 mmol/L (135-145); eGFR > 60.00
[2024-08-05] MEDS: DUONEB 3 ML INH ×4 (08:10→19:27)
[2024-08-05] MEDS: MUCINEX 600 MG PO ×2 (08:51→20:48)
[2024-08-05] MEDS: DELTASONE 50 MG PO (08:51)
[2024-08-05] MEDS: TAMIFLU 75 MG PO ×2 (08:52→20:49)
[2024-08-05] MEDS: ELIQUIS 5 MG PO ×2 (08:52→20:47)
--- NOTE | 2024-08-05 10:39 | W.PN.HOSP.TC ---
Today's Communication/Plan
-
see note
Assessment / Plan
Assessment / Plan
Influenza A viral pneumonia
acute hypoxic respiratory insufficiency
-patient has been started on Tamiflu.
-Currently on 4 L oxygen through nasal cannula.
-Spiking high-grade fever of 101.4 Fahrenheit in ER.
-Procal is elevated 1.13. maintain on empiric doxycycline 5 days
Lactic acidosis
-minimal 2.3, blood pressure normal. Monitor.
Toxic metabolic encephalopathy- improved
-reported some confusion, likely due to viral infection.
- Monitor for any focal neurological deficit.
- CT head negative in ER.
Acute Hyponatremia
-baseline sodium normal.
- Not on any meds to explain hyponatremia.
- further testing if worsens.
Atrial flutter
h/o cardioversion
- maintain on eliquis
DVT PPX - on apixaban
Code status - Full Code
Total time spent : 53mins
Anticipated Discharge: > 48 hours
Subjective/Interval History
-
Date of Service: August 05, 2024
having some thick phlegm, difficult to expectorate
continues to have fever
on o2 4L/NC
Objective Data
-
Labs:
Laboratory Results
08/05/24
06:56
WBC 10.1
Hgb 14.6
Hct 42.3
Plt Count 170
Sodium 132 L
Potassium 4.3
Chloride 96 L
Carbon Dioxide 29
BUN 19
Creatinine 0.8
Glucose 105 H
Calcium 8.5
Vital Signs:
Vital Signs
Temp Pulse Resp BP Pulse Ox
100.7 F H 88 18 119/52 92
08/05/24 07:00 08/05/24 08:12 08/05/24 08:12 08/05/24 07:00 08/05/24 09:50
I&O
08/04/24 08/05/24 08/06/24
06:59 06:59 06:59
Intake Total 1000 / 1000 240 / 240
Output Total
Balance 975 / 975 240 / 240
Review of Systems
-
Respiratory: Reports Cough; Denies Trouble Breathing or Wheezing
Cardiac: Reports No Symptoms
Abdomen/GI: Reports No Symptoms
Physical Exam
-
General: No Apparent Distress and Comfortable
HEENT: Oxygen (4L NC)
Respiratory: Rhonchi
Cardiac: Regular Rhythm and S1/S2; Negative Murmur or Rub
Musculoskeletal: No Edema
Neuro: Awake, Alert, Oriented, No Motor Deficits and Nonfocal/Grossly Intact
Psych: Calm
--- NOTE | 2024-08-05 11:30 | CM ---
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 Patient states he is independent with adl's and
ambulation, no dme, patient drives. Patient is currently on 3-4 liters of oxygen, admitted with influenza A pneumonia, also with COPD. Patient did not require oxygen prior to admission.
PCP: Dr. Ron Bronson
Pharmacy: [facility].
Plan; Patient is currently on 3-4 liters of oxygen, need to follow for any home oxygen needs at discharge.
[2024-08-05] MEDS: VIBRAMYCIN 100 MG PO ×2 (12:01→20:49)
[2024-08-06] MEDS: TYLENOL 650 MG PO (03:23)
[2024-08-06 04:05] VITALS: BP 120/50
--- NOTE | 2024-08-06 04:37 | DOWNTIME ---
There was a [employer] Client Pressure Dispatcher Downtime on 08/06/2024 from 0100 to 08/07/2023 at 0420 . Downtime documentation of patient's care, including medication administrations, has been reconciled in the electronic record per guidelines. Refer to the
patient's paper chart under the miscellaneous tab to see printed paper medication records and downtime forms.
[2024-08-06 07:00] VITALS: BP 122/50
[2024-08-06] MEDS: ELIQUIS 5 MG PO ×2 (07:30→20:23)
[2024-08-06] MEDS: MUCINEX 600 MG PO ×2 (07:31→20:23)
[2024-08-06] MEDS: VIBRAMYCIN 100 MG PO ×2 (07:31→20:23)
[2024-08-06] MEDS: DELTASONE 50 MG PO (07:31)
[2024-08-06] MEDS: TAMIFLU 75 MG PO ×2 (07:31→20:23)
[2024-08-06 07:49] LABS: Glucose - Point of Care 102 mg/dl (70-99)
[2024-08-06] MEDS: DUONEB 3 ML INH ×4 (08:01→19:40)
[2024-08-06 08:07] LABS: Hematocrit 40.5 % (39.0-52.0); Mean Corp Hgb Conc. 34.6 g/dL (33.0-37.0); Mean Corpuscular Hgb 32.7 pg (27.0-31.0); Mean Corpuscular Volume 94.6 fL (80.0-94.0); Mean Platelet Volume 9.1 fL (7.4-10.4); Platelet Count 167 10^3/uL (130-400); Red Blood Cell Count 4.28 10^6/uL (4.70-6.10); Red Cell Dist. Width 13.2 % (11.5-14.5); White Blood Cell Count 9.8 10^3/uL (4.8-10.8)
[2024-08-06 08:43] LABS: Blood Urea Nitrogen 15 mg/dl (9-20); Calcium 8.6 mg/dl (8.4-10.2); Carbon Dioxide 33 mmol/L (22-30); Chloride 93 mmol/L (98-107); Estimated Creatinine Clearance 74 ml/min; Glucose 99 mg/dl (70-99); Potassium 4.2 mmol/L (3.5-5.1); Sodium 133 mmol/L (135-145); eGFR > 60.00
[2024-08-06 11:00] VITALS: BP 144/64
--- NOTE | 2024-08-06 13:44 | CM ---
custodial manager reviewed patient's chart and plan is to continue to wean patient off oxygen, patient is currently requiring 4 liters of oxygen and patient did not require oxygen prior to admission.
Plan; Home when stable.
--- NOTE | 2024-08-06 14:26 | PN.CDI ---
CDI
- -
CDI:
Physician Documentation Request
Admit Date: 08/04/24 03:03
Dear Doctor Abdias,
Please review the following and provide your response in the progress notes.
Clinical Indicators:
Pt admitted with Influenza A viral pneumonia and toxic metabolic encephalopathy.
ER Note: '...presents with shortness of breath and fever. Has had a cough for 2 to 3 weeks. Has been weak and having difficulty ambulating. Pulse ox 87% RA for EMS, placed on 6L NC O2, pulse ox 95%. On arrival RA pulse ox 87% placed back on O2.
Pt is confused....tachypneic, hypoxemic'
Clarify which of the following accurately represents the patient's respiratory status:
Acute respiratory failure
Acute Hypoxic Respiratory Insufficiency Only
Other
Additional information for Respiratory Failure:
Recognized criteria for Respiratory Failure (Source: [employer] Hospitalist Mar 2013)
ABGs: (1 or more) Symptoms Please indicate type if known
1. p)2 <60 or RA SPO2 <91% on RA 1. Tachypnea, SOB, dyspnea Hypoxic
2. pCO2 50 and pH <7.35 2. Use of accessory muscles Hypercapnic
3. pO2 decrease of pCO2 increase by 3. Pallor or cyanosis Hypoxic and Hypercapnic
10 mmHg from baseline if known 4. Anxiety or restlessness Unable to determine
5. Unable to speak in full sentences
Supplemental O2 of > 40% (5LPM) Intubation is not required
Use of terms such as suspected, likely, concern for, or probable (associated with a specific diagnosis that is being evaluated, monitored, or treated as if it exists) are acceptable and can be coded in the inpatient setting, when documented at the
time of discharge.
Thank you,
Amrita Pompa RN, BSN
CDI Specialist
[place] [facility]
Please use your independent medical judgment in providing your response.
[2024-08-06 15:00] VITALS: BP 139/57
--- NOTE | 2024-08-06 16:16 | W.PN.HOSP.TC ---
Addendum entered and electronically signed by Kennedy Calero MD 08/07/24 07:54:
Adjust diagnosis:
Acute hypoxic resp failure - wean off o2 as possible
Original Note:
Today's Communication/Plan
-
Maintenance steroid/Tamiflu
Continue doxycycline empirically
Wean off oxygen as possible
Assessment / Plan
Assessment / Plan
Influenza A viral pneumonia
acute hypoxic respiratory insufficiency
-patient has been started on Tamiflu.
-Currently on 4 L oxygen through nasal cannula.
-Spiking high-grade fever of 101.4 Fahrenheit in ER.
-Procal is elevated 1.13. maintain on empiric doxycycline 5 days
-Patient continued to have wheezing/hypoxia, continue wean off oxygen as part
Lactic acidosis
-minimal 2.3, blood pressure normal. Monitor.
Toxic metabolic encephalopathy- improved
-reported some confusion, likely due to viral infection.
- Monitor for any focal neurological deficit.
- CT head negative in ER.
Acute Hyponatremia
-baseline sodium normal.
- Not on any meds to explain hyponatremia.
- further testing if worsens.
Atrial flutter
h/o cardioversion
- maintain on eliquis
DVT PPX - on apixaban
Code status - Full Code
Anticipated Discharge: 24 - 48 hours
Subjective/Interval History
-
Date of Service: August 06, 2024
Remains hypoxic
Required 3 L oxygen through nasal cannula
No other reported problem
Objective Data
-
Labs:
Laboratory Results
08/06/24
07:16
WBC 9.8
Hgb 14.0
Hct 40.5
Plt Count 167
Sodium 133 L
Potassium 4.2
Chloride 93 L
Carbon Dioxide 33 H
BUN 15
Creatinine 0.8
Glucose 99
Calcium 8.6
Vital Signs:
Vital Signs
Temp Pulse Resp BP Pulse Ox
98.3 F 75 18 144/64 92
08/06/24 11:00 08/06/24 11:50 08/06/24 11:50 08/06/24 11:00 08/06/24 11:50
I&O
08/05/24 08/06/24 08/07/24
06:59 06:59 06:59
Intake Total 240 / 240 480 / 480 250 / 250
Output Total 650 / 650 900 / 900
Balance 240 / 240 -170 / -170 -650 / -650
Review of Systems
-
Respiratory: Reports No Symptoms
Cardiac: Reports No Symptoms
Abdomen/GI: Reports No Symptoms
Physical Exam
-
General: No Apparent Distress and Comfortable
HEENT: Oxygen (3L NC)
Respiratory: Wheezes and Rhonchi
Cardiac: Regular Rhythm and S1/S2; Negative Murmur or Rub
Musculoskeletal: No Edema
Neuro: Awake, Alert, Oriented, No Motor Deficits and Nonfocal/Grossly Intact
Psych: Calm
[2024-08-06] MEDS: ROBITUSSIN 200 MG PO (16:41)
[2024-08-06 20:08] VITALS: BP 157/57
[2024-08-06 23:33] VITALS: BP 128/55
[2024-08-07 03:00] VITALS: BP 116/43
[2024-08-07 07:00] VITALS: BP 120/54
[2024-08-07] MEDS: VIBRAMYCIN 100 MG PO (07:57)
[2024-08-07] MEDS: DELTASONE 50 MG PO (08:00)
[2024-08-07] MEDS: MUCINEX 600 MG PO (08:00)
[2024-08-07] MEDS: TAMIFLU 75 MG PO (08:00)
[2024-08-07] MEDS: ELIQUIS 5 MG PO (08:00)
[2024-08-07 08:15] VITALS: O2SAT 91; O2SAT 94; BMI 27.1
[2024-08-07] MEDS: DUONEB 3 ML INH ×2 (08:15→11:13)
[2024-08-07 08:41] LABS: Hematocrit 41.4 % (39.0-52.0); Mean Corp Hgb Conc. 33.8 g/dL (33.0-37.0); Mean Corpuscular Hgb 31.9 pg (27.0-31.0); Mean Corpuscular Volume 94.3 fL (80.0-94.0); Mean Platelet Volume 9.3 fL (7.4-10.4); Platelet Count 198 10^3/uL (130-400); Red Blood Cell Count 4.39 10^6/uL (4.70-6.10); Red Cell Dist. Width 13.3 % (11.5-14.5); White Blood Cell Count 9.6 10^3/uL (4.8-10.8)
[2024-08-07 08:58] LABS: Blood Urea Nitrogen 19 mg/dl (9-20); Calcium 8.8 mg/dl (8.4-10.2); Carbon Dioxide 31 mmol/L (22-30); Chloride 95 mmol/L (98-107); Estimated Creatinine Clearance 85 ml/min; Glucose 89 mg/dl (70-99); Potassium 3.9 mmol/L (3.5-5.1); Sodium 134 mmol/L (135-145); eGFR > 60.00
--- NOTE | 2024-08-07 10:03 | W.PN.HOSP.TC ---
Today's Communication/Plan
-
amb o2 test
d/c home
Assessment / Plan
Assessment / Plan
Influenza A viral pneumonia
acute hypoxic respiratory failure -resolved
-patient has been started on Tamiflu.
-Currently on 4 L oxygen through nasal cannula.
-Spiking high-grade fever of 101.4 Fahrenheit in ER.
-Procal is elevated 1.13. maintain on empiric doxycycline 5 days
-Patient is off of oxygen at this point. Ambulatory oxygen to be checked and if patient passes can go home today on finishing course of Tamiflu/steroid
Lactic acidosis
-minimal 2.3, blood pressure normal. Monitor.
Toxic metabolic encephalopathy- Resolved
-reported some confusion, likely due to viral infection.
- Monitor for any focal neurological deficit.
- CT head negative in ER.
Acute Hyponatremia
-baseline sodium normal.
- Not on any meds to explain hyponatremia.
- further testing if worsens.
Atrial flutter
h/o cardioversion
- maintain on eliquis
DVT PPX - on apixaban
Code status - Full Code
More than 30 minutes spent in discharge including
Final examination of the patient
Summarizing hospital stay
Instructions for continuing care to all relevant caregivers
Preparation of discharge records, prescriptions, and referral forms
Total time spent (in minutes):39 mins
Anticipated Discharge: Today
Subjective/Interval History
-
Date of Service: August 07, 2024
Patient is off of oxygen
Continues to have some cough with secretions
Afebrile
No other acute problems overnight
Objective Data
-
Labs:
Laboratory Results
08/07/24
07:31
WBC 9.6
Hgb 14.0
Hct 41.4
Plt Count 198
Sodium 134 L
Potassium 3.9
Chloride 95 L
Carbon Dioxide 31 H
BUN 19
Creatinine 0.7
Glucose 89
Calcium 8.8
Vital Signs:
Vital Signs
Temp Pulse Resp BP Pulse Ox
98 F 78 18 120/54 94
08/07/24 07:00 08/07/24 08:16 08/07/24 08:16 08/07/24 07:00 08/07/24 08:16
I&O
08/06/24 08/07/24 08/08/24
06:59 06:59 06:59
Intake Total 480 / 480 1690 / 1690
Output Total 650 / 650 1000 / 1000
Balance -170 / -170 690 / 690
Review of Systems
-
Respiratory: Reports Cough
Cardiac: Reports No Symptoms
Abdomen/GI: Reports No Symptoms
Physical Exam
-
General: No Apparent Distress and Comfortable
HEENT: Negative Oxygen
Respiratory: Rhonchi
Cardiac: Regular Rhythm and S1/S2; Negative Murmur or Rub
Musculoskeletal: No Edema
Neuro: Awake, Alert, Oriented, No Motor Deficits and Nonfocal/Grossly Intact
Psych: Calm
[2024-08-07 11:24] VITALS: BP 133/54
--- NOTE | 2024-08-07 11:39 | CM ---
Chart reviewed and home oxygen evaluation completed and patient does not require oxygen at discharge. Patient reports that he has transportation to home today.
Plan: Home no needs.
[2024-08-07] MEDS: FLUAD (65 yr+) 2024-2025 FORMULA 0.5 ML IM (12:37)
== END 2024-08-07 13:26 | disposition home or self-care (01) | DRG 193 ==
LOC: 4 WEST ACU 03:03
PROVIDERS: Emergency Medicine; ADMITTING PHYSICIAN Internal Medicine; ATTENDING PHYSICIAN Hospitalist; EMERGENCY PHYSICIAN Emergency Medicine; FAMILY PHYSICIAN Family Medicine
DX: J10.01 Influenza due to other identified influenza virus with the same other identified influenza virus pneumonia (principal); G92.8 Other toxic encephalopathy; J96.01 Acute respiratory failure with hypoxia; E87.20 Acidosis, unspecified; E87.1 Hypo-osmolality and hyponatremia; I48.92 Unspecified atrial flutter; R47.01 Aphasia; Z11.52 Encounter for screening for COVID-19; K21.9 Gastro-esophageal reflux disease without esophagitis; N40.0 Benign prostatic hyperplasia without lower urinary tract symptoms; I48.91 Unspecified atrial fibrillation; Z79.01 Long term (current) use of anticoagulants; J44.9 Chronic obstructive pulmonary disease, unspecified; K22.70 Barrett's esophagus without dysplasia; Z85.828 Personal history of other malignant neoplasm of skin; F17.200 Nicotine dependence, unspecified, uncomplicated; R31.29 Other microscopic hematuria
CPT/HCPCS: 51701; 70450; 71045; 80048; 80053; 81003; 81015; 82962; 83605; 84145; 85025; 85027; 87040; 87070; 87502; 87811; 93005; 94640; 99285

== ENCOUNTER 2024-08-12 17:49 | Inpatient (IN) | payer MEDICARE, BC, SELFPAY ==
[2024-08-12] VITALS (7 sets, daily range): BP systolic 106–148; BP diastolic 48–90; BMI 27.4; BMI 26.7
--- NOTE | 2024-08-12 16:14 | ED.GENMED ---
History of Present Illness
General
Chief Complaint: Breathing Problem
Time Seen by Provider: 08/12/24 15:56
History of Present Illness
History of Present Illness:
89-year-old male presents to the emergency department for evaluation of continued shortness of breath and coughing. He was admitted from 08/04-08/07 for influenza with respiratory failure. Completed a course of oseltamavir and was discharged off
oxygen. He followed up with his primary care physician today at which point he was sent for an outpatient chest x-ray revealing an organized right middle lobe infiltrate. He was then referred back to the ED for admission as he was noted to be
hypoxic in the office. Patient states he does not feel worse but not necessarily better than discharge. No chest pain at present. Cough is dry and nonproductive.
Past History
Past History
ED Past Medical History: Arrthythmia (afib), GERD and Other (Patient has history of diverticulosis, but has not had any history of diverticulitis, and benign prostatic hypertrophy )
ED Past Surgical History: Appendectomy, Orthopedic (Daniel hip replacements) and Other (cataracts)
Social History
Tobacco: Smoker
Alcohol: Daily (Scotch 2)
Personal:
Living: with family
Employment: Retired
Review of Systems
Review of Systems
Allergies reviewed?: Yes
All Other Systems: ROS reviewed and negative except as documented in HPI and ROS
Phy Exam
Physical Exam
Physical Exam:
GEN: Well appearing, NAD, WDWN
HEENT: Oral mucosa moist, no scleral icterus
Cardiac: Regular rate and rhythm, no murmurs
Lung: No respiratory distress, no tachypnea, mild rhonchi in the right middle and lower lobes, otherwise lungs clear
MSK: No gross deformity or injuries
Skin: Good color, no pallor or jaundice, no rashes
Neuro: AO x3, moves all extremities freely
Psych: Calm, cooperative
Scores
Heart Failure Risk
Heart Failure Risk Score: Not Applicable
Course
Orders/Labs/Results
Orders:
Orders
08/12/24 14:21
Electrocardiogram (*1) Urgent
Reason for Study: Shortness of Breath
EKG- Treatment ONCE
08/12/24 16:02
CefTRIAXone [Rocephin] 1,000 mg IV NOW STA
08/12/24 16:06
Vancomycin [Vancocin] 2,000 mg 0.9% Sodium Chloride 500 ml [Nss] 500 ml IV NOW
08/12/24 16:26
Sterile Water [Sterile Water For Injection] 10 ml .ROUTE .STK-MED ONE
08/12/24 16:34
Complete Blood Count/With Diff Urgent
Comprehensive Metabolic Panel Urgent
Procalcitonin Urgent
PCT Algorithmm Indication: Respiratory
08/12/24 17:38
Admit/Transfer Patient As Directed
Co-Sign Provider:
Level of Care: Inpatient admission
Assign to:: Medical/Surgical
Physician / Group: quoc
Diagnosis: right middle lobe pneumonia
Reason for Hospitalization: right middle lobe pneumonia
Expected length of stay greater than two midnights?: Yes
ELOS- Estimated Length of Stay in days: 2
I certify the patient meets the requirements for IP care: Yes
PRN Pain Medication Management As Directed
May give lesser potent ordered pain med per pt: Yes
preference::
Protocol:: Medication orders for pain may be administered in a
manner that supports deferring to patient preference
when the pt is:
- Requesting an ordered lesser potent pain medication.
Least to most potent pain medications are defined
as: acetaminophen < NSAID < tramadol < opioids
(morphine, oxycodone, hydromorphone).
- Requesting a lesser dose of the same medication IF
ORDERED.
- Requesting a less intrusive route of administration
if both routes are prescribed by the provider (PO <
IV).
08/12/24 17:39
Code Status As Directed
Resuscitation Status: Full Code
08/12/24 17:45
Respiratory Culture/Gram Stain Urgent
MARIBETH Source: Sputum
Specimen Description:
08/12/24 18:40
COVID-19 Antigen Urgent
Source: Nasal Swab
Abnormal Lab Results
08/12/24
16:34
RBC 4.56 L 10^6/uL
(4.70-6.10)
MCH 32.2 H pg
(27.0-31.0)
Plt Count 427 H D 10^3/uL
(130-400)
Abs Immat Gran (auto) 0.6 H 10^3/uL
(0-0.05)
Absolute Neuts (auto) 8.6 H 10^3/uL
(1.4-6.5)
Absolute Lymphs (auto) 1.1 L 10^3/uL
(1.2-3.4)
Immature Gran % 5.1 H %
(0-0.5)
Neutrophils % 79.8 H %
(42.2-75.2)
Lymphocytes % 9.8 L %
(20.5-51.1)
Potassium 5.4 H mmol/L
(3.5-5.1)
Glucose 142 H mg/dl
(70-99)
ALT 254 H U/L
(0-50)
08/12/24 16:34
08/12/24 16:34
Vital Signs
Initial and Last Documented VS:
Initial Vital Signs
Temp Pulse Resp BP Pulse Ox
97.9 F 62 19 133/52 91
08/12/24 14:33 08/12/24 14:33 08/12/24 14:33 08/12/24 14:33 08/12/24 14:33
Last Documented Vital Signs
Temp Pulse Resp BP Pulse Ox
97.9 F 53 16 106/90 96
08/12/24 14:33 08/12/24 18:40 08/12/24 18:40 08/12/24 18:40 08/12/24 18:40
MDM/Problems Addressed
MDM/Problems Addressed:
Patient is increased risk of MRSA pneumonia due to recent influenza and hospital admission for 3 days, will cover with ceftriaxone and vancomycin, due to mild hypoxemia will admit for further management
*Critical Care Note
Total Time (30-74mins, 75-104mins- exclusive of procedures): Not Applicable
ED Attending Note
-
Portions of this chart may have been created with voice recognition software.� Occasional wrong word or��sound alike� substitutions may have occurred due to the inherent limitations of voice recognition software.
Discharge Plan
Departure
Patient Disposition: Admit
Date of Disposition: 08/12/24
Time of Disposition: 17:17
Admit to: Med/Surg
Presentation/result/management discussed w/ accepting MD/DO: Hospitalist
Discharge Problem:
Pneumonia
Interventions
Interventions:
*Risk Screen - Suicide Last Done: 08/12/24 14:33
*General Assessment Last Done: 08/12/24 14:33
ED- Cardiac Assessment Last Done: 08/12/24 16:27
ED- Pulmonary Assessment Last Done: 08/12/24 18:08
[2024-08-12] MEDS: ROCEPHIN 1000 MG IV (16:38)
[2024-08-12 17:02] LABS: Hematocrit 42.8 % (39.0-52.0); Hemoglobin 14.7 g/dL (13.0-18.0); Mean Corp Hgb Conc. 34.3 g/dL (33.0-37.0); Mean Corpuscular Hgb 32.2 pg (27.0-31.0); Mean Corpuscular Volume 93.9 fL (80.0-94.0); Mean Platelet Volume 8.6 fL (7.4-10.4); Platelet Count 427 10^3/uL (130-400); Red Blood Cell Count 4.56 10^6/uL (4.70-6.10); Red Cell Dist. Width 13.5 % (11.5-14.5); White Blood Cell Count 10.8 10^3/uL (4.8-10.8)
[2024-08-12 17:06] LABS: ALT (SGPT) 254 U/L (0-50); AST (SGOT) 58 U/L (17-59); Albumin 3.5 g/dl (3.5-5.0); Alkaline Phosphatase 104 U/L (38-126); Blood Urea Nitrogen 16 mg/dl (9-20); Calcium 9.2 mg/dl (8.4-10.2); Carbon Dioxide 30 mmol/L (22-30); Chloride 102 mmol/L (98-107); Estimated Creatinine Clearance 85 ml/min; Glucose 142 mg/dl (70-99); Potassium 5.4 mmol/L (3.5-5.1); Sodium 139 mmol/L (135-145); Total Bilirubin 0.5 mg/dl (0.2-1.3); Total Protein 6.5 g/dl (6.3-8.2); eGFR > 60.00
[2024-08-12 17:16] LABS: % Basophils 0.3 % (0-2); % Immature Granulocytes 5.1 % (0-0.5); % Lymphocytes 9.8 % (20.5-51.1); % Neutrophils 79.8 % (42.2-75.2); Absolute Immature Granulocytes 0.6 10^3/uL (0-0.05); Absolute Lymphocytes 1.1 10^3/uL (1.2-3.4); Absolute Monocytes 0.5 10^3/uL (0.1-0.6); Absolute Neutrophils 8.6 10^3/uL (1.4-6.5); Nucleated Red Blood Cells % 0 % (-)
[2024-08-12 17:23] LABS: Procalcitonin < 0.05 ng/ml (0.0-0.25)
[2024-08-12] MEDS: VANCOCIN 540 MG IV (17:35)
--- NOTE | 2024-08-12 17:46 | HPS.HSE ---
Family Physician
-
Family Physician: Ron Chairez
Chief Complaint
-
cough
History of Present Illness
89-year-old male past medical history of atrial flutter on Eliquis, possible COPD, hyponatremia, presenting with shortness of breath and right middle lobe pneumonia ough. Patient was admitted from 08/04 to 08/07 for influenza with respiratory
failure. Patient completed Tamiflu was discharged off of oxygen. Patient also completed doxycycline and prednisone for 5 days. Patient follow-up with primary care physician today and was sent for outpatient chest x-ray revealing organized right
middle lobe infiltrate. He was referred back to the emergency room since he was hypoxic in the office. Patient does not feel worse but not necessarily better since discharge. No chest pain.
He continues to have sometimes productive cough, mild shortness of breath and profound weakness. Denies fevers or chills. He had severe diarrhea yesterday but has resolved today. Denies nausea or vomiting. Has some abdominal discomfort.
He is a former smoker.
Medical History
Past Medical History
Past Medical History: Reports Other ( atrial flutter on Eliquis, possible COPD, hyponatremia,)
Past Surgical History: Reports None
Social History
Tobacco: Non-smoker
Alcohol: None
Drug: None
Family History
Family History: Not pertinent
Allergies / Home Medications
Allergies reflects when Allergies were last updated in [facility].
Home Medications with original date entered in [facility]
Allergy/Medication List:
Allergies
Allergy/AdvReac Type Severity Reaction Status Date / Time
No Known Allergies Allergy Verified 08/12/24 14:38
Home Medications
apixaban 5 mg tablet (Eliquis) 5 mg PO BID Blood Clot Prevention/Tx 09/13/23
naproxen sodium 220 mg tablet (Aleve) 220 mg PO DAILY 08/04/24
pantoprazole 40 mg tablet,delayed release 40 mg PO DAILYPRN PRN gerd 08/12/24
prednisone 10 mg tablet 30 mg PO .TAPER 08/12/24
Review of Systems
-
History Source: Patient
A 12 point ROS was completed and negative except as noted: Yes
Constitutional: Reports No Symptoms
EENT: Reports No Symptoms
Respiratory: Reports See HPI
Cardiac: Reports No Symptoms
Abdomen/GI: Reports No Symptoms
: Reports No Symptoms
Musculoskeletal: Reports No Symptoms
Skin: Reports No Symptoms
Neurological: Reports No Symptoms
Endocrine: Reports No Symptoms
Hematologic/Lymphatic: Reports No Symptoms
Psych: Reports No Symptoms
Physical Exam
Vital Signs
Vital Signs
Temp Pulse Resp BP Pulse Ox
97.9 F 54 24 133/52 93
08/12/24 14:33 08/12/24 16:27 08/12/24 16:27 08/12/24 14:33 08/12/24 16:27
Physical Exam
General: Well Developed, Well Nourished and No Apparent Distress
HEENT: NormoCephalic, Moist mucous membranes and Atraumatic
Respiratory: Clear
Cardiac: S1/S2 and Regular Rhythm; No Murmur or Rub
GI: Soft, Non Tender, Non Distended and Normal Bowel Sounds; No Organomegaly
Rectal: Deferred by Provider
Musculoskeletal: No Clubbing, No Cyanosis and No Edema
Skin: No Rash
Neuro: Nonfocal/grossly intact
Laboratory Results
-
08/12/24 16:34
08/12/24 16:34
Laboratory Results
Total Bilirubin 0.5 mg/dl (0.2-1.3) 08/12/24 16:34
AST 58 U/L (17-59) 08/12/24 16:34
ALT 254 U/L (0-50) H 08/12/24 16:34
Alkaline Phosphatase 104 U/L (38-126) 08/12/24 16:34
Data Reviewed
-
Lab Data: Labs Reviewed by me
Old Records: Reviewed
Impression/Plan
-
IMPRESSION:
PLAN:
# Right middle lobe pneumonia likely post influenza bacterial infection
# Recent influenza infection
-Chest x-ray showed lateral segment right middle lobe pneumonia
-Vancomycin/ceftriaxone
-Check MRSA swab, although negative on 08/04
-Check strep antigen, Legionella
-Check sputum culture
-Hold further prednisone taper
Paroxysmal atrial flutter
-Continue Eliquis
Asymptomatic sinus bradycardia
-No prior history or AV carrie blocking agentxs
Possible undiagnosed COPD
-Former smoker
History of hyponatremia
Full code
DVT prophylaxis�heparin
Regular diet
[2024-08-12 19:05] LABS: COVID-19 Antigen Negative (Negative)
[2024-08-12] MEDS: ELIQUIS 5 MG PO (21:48)
[2024-08-13 07:05] VITALS: BP 127/55
[2024-08-13] MEDS: VANCOCIN 530 MG IV (07:24)
--- NOTE | 2024-08-13 08:22 | PTCARENOTE ---
Lab informed this RN of critical urine culture, result = positive for strep. MD and resident made aware.
[2024-08-13] MEDS: NAPROSYN 250 MG PO (08:26)
--- NOTE | 2024-08-13 08:26 | W.PN.HOSP.TC ---
Addendum entered and electronically signed by Luis Calero MD 08/13/24 11:55:
Acute hypoxic respiratory failure secondary to bacterial pneumonia
-Strep pneumo +
-DC vanc
-Continue Ctx
-Wean o2
-Incentive reginald
-Acepella
Hyperkalemia
-resolved
PAfib
-Eliquis
Original Note:
Documented by User: Silva Willis MD, Resident 08/13/24 11:34
Today's Communication/Plan
-
Cont ceftriaxone and fluids
Wean O2 as able
Assessment / Plan
Assessment / Plan
#Right middle lobe pneumonia
#Recent influenza infx
-Chest x-ray lateral segment right middle lobe pneumonia
-Strep Pneumonia urinary antigen (+)
-MRSA on 08/04/24 (-)
-Dc vano, cont ceftriaxone
-Cont fluids
-Wean O2 as able
#Hyperkalemia
-5.4 on admission -> 4.2
-Monitor
#Paroxysmal A-fib
-Continue Eliquis
#Asymptomatic sinus bradycardia
-No prior history or AV carrie blocking agents
#Possible undiagnosed COPD
-Former smoker for 40 years, quit 1 year ago
#History of hyponatremia
#History of alcohol use disorder
-drinks 2 scotches a day
-Denies any tremors, anxiety, JEAN, nausea
-Monitor for withdrawal
Full code
DVT prophylaxis heparin
Regular diet
Anticipated Discharge: Within 24 hours
Subjective/Interval History
-
Date of Service: August 13, 2024
Objective Data
-
Labs:
Laboratory Results
08/13/24
07:11
WBC Pending
Hgb Pending
Hct Pending
Plt Count Pending
Sodium Pending
Potassium Pending
Chloride Pending
Carbon Dioxide Pending
BUN Pending
Creatinine Pending
Glucose Pending
Calcium Pending
Total Bilirubin Pending
AST Pending
ALT Pending
Alkaline Phosphatase Pending
Vital Signs:
Vital Signs
Temp Pulse Resp BP Pulse Ox
97.4 F 52 19 127/55 98
08/13/24 07:05 08/13/24 07:05 08/13/24 07:05 08/13/24 07:05 08/13/24 07:05
I&O
08/12/24 08/13/24 08/14/24
06:59 06:59 06:59
Intake Total 240 / 240
Output Total 350 / 350
Balance -110 / -110
Review of Systems
-
History Source: Patient
Constitutional: Reports Fatigue
EENT: Reports No Symptoms Reported
Respiratory: Reports Cough and Trouble Breathing
Abdomen/GI: Reports No Symptoms
Genitourinary: Reports No Symptoms
Neuro: Reports No Symptoms
Physical Exam
-
General: No Apparent Distress
Respiratory: Crackles (RLL and RML )
Cardiac: Regular Rhythm and S1/S2
GI: Soft, Nontender, Nondistended and Normal Bowel Sounds
Musculoskeletal: No Edema
Skin: Warm and Dry
Neuro: AO x 3
Psych: Calm

Documented by User: Luis Calero MD 08/13/24 11:45
Subjective/Interval History
-
Date of Service: August 13, 2024
Seen and examined
No new complaints
No acute ovenirght event
[2024-08-13] MEDS: ELIQUIS 5 MG PO ×2 (08:27→20:20)
[2024-08-13 09:20] LABS: % Basophils 0.4 % (0-2); % Eosinophils 0.8 % (0-6); % Immature Granulocytes 4.7 % (0-0.5); % Lymphocytes 25.3 % (20.5-51.1); % Monocytes 8.2 % (1.7-9.3); % Neutrophils 60.6 % (42.2-75.2); Absolute Eosinophils 0.1 10^3/uL (0-0.7); Absolute Immature Granulocytes 0.4 10^3/uL (0-0.05); Absolute Lymphocytes 2.3 10^3/uL (1.2-3.4); Absolute Monocytes 0.8 10^3/uL (0.1-0.6); Absolute Neutrophils 5.5 10^3/uL (1.4-6.5); Hematocrit 42.2 % (39.0-52.0); Mean Corp Hgb Conc. 33.2 g/dL (33.0-37.0); Mean Corpuscular Hgb 31.8 pg (27.0-31.0); Mean Corpuscular Volume 95.9 fL (80.0-94.0); Mean Platelet Volume 8.7 fL (7.4-10.4); Nucleated Red Blood Cells % 0 % (-); Platelet Count 367 10^3/uL (130-400); Red Cell Dist. Width 13.4 % (11.5-14.5); White Blood Cell Count 9.1 10^3/uL (4.8-10.8)
[2024-08-13 10:41] LABS: ALT (SGPT) 203 U/L (0-50); AST (SGOT) 39 U/L (17-59); Alkaline Phosphatase 98 U/L (38-126); Blood Urea Nitrogen 15 mg/dl (9-20); Calcium 8.4 mg/dl (8.4-10.2); Carbon Dioxide 32 mmol/L (22-30); Chloride 100 mmol/L (98-107); Estimated Creatinine Clearance 66 ml/min; Glucose 66 mg/dl (70-99); Potassium 4.2 mmol/L (3.5-5.1); Sodium 139 mmol/L (135-145); Total Bilirubin 0.5 mg/dl (0.2-1.3); Total Protein 5.7 g/dl (6.3-8.2); eGFR > 60.00
[2024-08-13 12:14] VITALS: BP 149/94; PULSE 55; O2SAT 95
[2024-08-13 12:15] VITALS: BP 149/64; PULSE 55; O2SAT 94
[2024-08-13 15:05] VITALS: BP 119/45
[2024-08-13] MEDS: STERILE WATER FOR INJECTION 10 ML IV (15:07)
[2024-08-13] MEDS: ROCEPHIN 1000 MG IV (15:08)
[2024-08-13] MEDS: FLUSH (NSS) 2 FLUSH IV (15:08)
--- NOTE | 2024-08-13 16:25 | CM ---
Met with patient to obtain information for assessment. Patient stated that he lives in a three story home with his . There is one step to enter. He described himself as independent with ADLs, personal care, dressing and bathing. 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 Patient has never had VN services. He has not been to a SNF. He denied any DME.
Patient has a prescription plan and uses, [facility] in [place].
Patient's PCP is, Dr. Ron Lees.
Patient stated that he feels he will be able to return home when cleared. Will watch PT.
Plan: Case management will continue to follow and assist with discharge planning. Will watch for needs.
[2024-08-13 23:00] VITALS: BP 123/52
[2024-08-14 07:19] LABS: Hematocrit 41.7 % (39.0-52.0); Mean Corp Hgb Conc. 33.6 g/dL (33.0-37.0); Mean Corpuscular Hgb 31.9 pg (27.0-31.0); Mean Platelet Volume 8.5 fL (7.4-10.4); Platelet Count 354 10^3/uL (130-400); Red Blood Cell Count 4.39 10^6/uL (4.70-6.10); Red Cell Dist. Width 13.4 % (11.5-14.5); White Blood Cell Count 8.2 10^3/uL (4.8-10.8)
[2024-08-14 07:22] VITALS: BP 148/60
[2024-08-14 07:25] LABS: Blood Urea Nitrogen 16 mg/dl (9-20); Calcium 8.9 mg/dl (8.4-10.2); Carbon Dioxide 31 mmol/L (22-30); Chloride 102 mmol/L (98-107); Estimated Creatinine Clearance 85 ml/min; Glucose 87 mg/dl (70-99); Potassium 4.4 mmol/L (3.5-5.1); Sodium 140 mmol/L (135-145); eGFR > 60.00
[2024-08-14] MEDS: ELIQUIS 5 MG PO (07:30)
[2024-08-14] MEDS: NAPROSYN 250 MG PO (07:30)
[2024-08-14] MEDS: SPIRIVA RESPIMAT 2.5 MCG 2 PUFF INH (07:36)
[2024-08-14] MEDS: STRIVERDI RESPIMAT 2 PUFF INH (07:36)
--- NOTE | 2024-08-14 08:27 | W.PN.HOSP.TC ---
Addendum entered and electronically signed by Lusi Calero MD 08/14/24 15:24:
home o2 assessment prior to dc
po augmentin
Original Note:
Today's Communication/Plan
-
Discharge on PO Augmentin
Will provide home O2 if required
Assessment / Plan
Assessment / Plan
#Right middle lobe pneumonia
#Recent influenza infx
-Chest x-ray lateral segment right middle lobe pneumonia
-Strep Pneumonia urinary antigen (+)
-MRSA on 08/04/24 (-)
-Dc vano, cont ceftriaxone -> switch to oral Augmentin for next 3 days
-Off O2
-Home O2 evaluation prior to discharge to see if able to see if needs home O2
-Discharge on PO Augmentin for 3 days as he already had 2 days ceftriaxone
#Hyperkalemia
-resolved
#Paroxysmal A-fib
-Continue Eliquis
#Asymptomatic sinus bradycardia
-No prior history or AV carrie blocking agents
#Possible undiagnosed COPD
-Former smoker for 40 years, quit 1 year ago
#History of hyponatremia
#History of alcohol use disorder
-drinks 2 scotches a day
-Denies any tremors, anxiety, JEAN, nausea
-Monitor for withdrawal
Full code
DVT prophylaxis heparin
Regular diet
Anticipated Discharge: Today
Subjective/Interval History
-
Date of Service: August 14, 2024
Objective Data
-
Labs:
Laboratory Results
08/14/24
06:24
WBC 8.2
Hgb 14.0
Hct 41.7
Plt Count 354
Sodium 140
Potassium 4.4
Chloride 102
Carbon Dioxide 31 H
BUN 16
Creatinine 0.7
Glucose 87
Calcium 8.9
Vital Signs:
Vital Signs
Temp Pulse Resp BP Pulse Ox
97.6 F 57 16 148/60 96
08/14/24 07:22 08/14/24 07:41 08/14/24 07:41 08/14/24 07:22 08/14/24 07:41
I&O
08/13/24 08/14/24 08/15/24
06:59 06:59 06:59
Intake Total 240 / 240 2099
Output Total 350 / 350
Balance -110 / -110 2099
Review of Systems
-
History Source: Patient
EENT: Reports No Symptoms Reported
Respiratory: Reports Cough; Denies Trouble Breathing
Cardiac: Reports No Symptoms
Abdomen/GI: Reports No Symptoms
Skin: Reports No Symptoms
Neuro: Reports No Symptoms
Physical Exam
-
General: No Apparent Distress and Comfortable
HEENT: Normocephalic
Respiratory: Clear to Auscultation
Cardiac: Regular Rhythm and S1/S2
GI: Soft, Nontender, Nondistended and Normal Bowel Sounds
Musculoskeletal: No Edema
Skin: Warm and Dry
Neuro: AO x 3
Psych: Calm
[2024-08-14 11:45] VITALS: BP 140/60
--- NOTE | 2024-08-14 11:48 | W.DCSUMMARY ---
Addendum entered and electronically signed by Luis Calero MD 08/14/24 15:23:
dc home
Original Note:
Discharge Summary
Discharge Data
Date of Admission: 08/12/24
Date of Discharge: 08/14/24
-
Pending Results: No
Hospital Course
Primary diagnosis:
Acute respiratory failure
Community-acquired pneumonia
Secondary diagnosis;
Atrial fibrillation
COPD
Hyponatremia
89-year-old male presented to [facility] with shortness of breath and right middle lobe pneumonia found on outpatient chest x-ray. He was previously admitted here from 08/04 to 08/07 for influenza with respiratory failure. He completed
Tamiflu and also completed doxycycline and prednisone taper for 5 days. Follow-up with PCP he was hypoxic and checks x-ray revealed right middle lobe pneumonia. Upon admission, patient's labs were unremarkable, vital stable. He was started on
vancomycin and ceftriaxone. Antibiotic coverage narrowed to ceftriaxone as MRSA swab came back negative and urine specimen revealed streptococcal pneumoniae. He was weaned off oxygen.
Today, patient is clinically stable for discharge. He completed 2 days of ceftriaxone in the hospital, continue with 3 additional days on Augmentin in the outpatient setting. Recommend follow-up with PCP within a week.
Discharge Plan
-
Patient Disposition: Home (Routine Discharge)
Discharge Diagnosis/Procedures: Acute respiratory failure, Community acquired pneumonia
Condition: Good
Diet: As tolerated
Activity: No restrictions
Driving Restrictions: As prior to admission
Bathing Restrictions: None
Referrals:
Ron Chairez MD [Family Provider] - in less than 1 week
Additional Discharge Medication Instructions: Please take Augmentin 1 tablet every 12 hours for next 3 days.
Prescriptions:
New
amoxicillin-pot clavulanate 875-125 mg tablet
1 tab PO BID 3 Days Qty: 7 0RF
Continued
Eliquis 5 mg Tablet
5 mg PO BID
naproxen sodium [Aleve] 220 mg Tablet
220 mg PO DAILY
pantoprazole 40 mg Tablet,Delayed Release (Dr/Ec)
40 mg PO DAILYPRN PRN (Reason: gerd)
Anoro Ellipta 62.5-25 mcg/actuation Blister With Device
1 inh INHALATION DAILY
albuterol sulfate 90 mcg/actuation Hfa Aerosol Inhaler
2 puff INHALATION Q6H PRN (Reason: SOB)
Discontinued
prednisone 10 mg tablet
30 mg PO .TAPER
Rx Instructions:
Take By Mouth: 40 mg daily x3 days, 30 mg daily x3 days, 20 mg daily x3 days, 10 mg daily x3 days.
Discharge Orders:
Discharge Patient (As Directed); Ordered 08/14/24
Ordered By: Silva Willis
Discharge Date and Time
Print Language: BRUNEIAN
[2024-08-14] MEDS: AUGMENTIN 875 MG/125 MG 1 TABLET PO (12:00)
--- NOTE | 2024-08-14 12:35 | CM ---
Received notification that patient is being discharged. Met with patient who signed IMM. It was reviewed and on chart. Patient stated that his and caregiver will transport home.
Plan: Case management will continue to follow and assist with discharge planning. Home no needs.
== END 2024-08-14 14:18 | disposition home or self-care (01) | DRG 193 ==
LOC: 3 WEST ACU 17:49
PROVIDERS: Physician Assistant; ADMITTING PHYSICIAN Hospitalist; ATTENDING PHYSICIAN Hospitalist; EMERGENCY PHYSICIAN Emergency Medicine; FAMILY PHYSICIAN Family Medicine
DX: J13 Pneumonia due to Streptococcus pneumoniae (principal); J96.01 Acute respiratory failure with hypoxia; J44.0 Chronic obstructive pulmonary disease with (acute) lower respiratory infection; I48.92 Unspecified atrial flutter; E87.1 Hypo-osmolality and hyponatremia; E87.5 Hyperkalemia; I48.0 Paroxysmal atrial fibrillation; Z79.01 Long term (current) use of anticoagulants; Z79.899 Other long term (current) drug therapy; K21.9 Gastro-esophageal reflux disease without esophagitis; Z87.891 Personal history of nicotine dependence; Z79.51 Long term (current) use of inhaled steroids
CPT/HCPCS: 71046; 80048; 80053; 84145; 85025; 85027; 87070; 87205; 87449; 87811; 87899; 93005; 94640; 96374; 96375; 97162; 97166; 99285; 99406

== ENCOUNTER → 2024-08-19 13:58 | Outpatient (REF) | payer MEDICARE, BC, SELFPAY | LOC: RAD 13:58 | PROVIDERS: ATTENDING PHYSICIAN Family Medicine | DX: J18.9 Pneumonia, unspecified organism (principal); R06.02 Shortness of breath | CPT/HCPCS: 71046 ==

== ENCOUNTER → 2024-10-03 13:40 | Outpatient (REF) | payer MEDICARE, BC, SELFPAY | LOC: RAD 13:40 | PROVIDERS: ATTENDING PHYSICIAN Family Medicine | DX: J18.9 Pneumonia, unspecified organism (principal) | CPT/HCPCS: 71046 ==

== ENCOUNTER → 2024-10-27 12:56 | Outpatient (REF) | payer MEDICARE, BC, SELFPAY | LOC: RAD 12:56 | PROVIDERS: ATTENDING PHYSICIAN Family Medicine | DX: R05.2 Subacute cough (principal) | CPT/HCPCS: 71046 ==

== ENCOUNTER → 2025-05-05 11:17 | Outpatient (REF) | payer MEDICARE, BC, SELFPAY | LOC: RAD 11:17 | PROVIDERS: ATTENDING PHYSICIAN Family Medicine | DX: R63.4 Abnormal weight loss (principal) | CPT/HCPCS: 71260; 74177; Q9967 ==